=== PATIENT | female | born 2000 | race Caucasian/White ===

== ENCOUNTER 2021-04-15 22:29 | Emergency (ER) | payer MEDICAID, SELFPAY ==
[2021-04-15 22:43] VITALS: BP 119/69; PULSE 74; RESP 16; TEMP 37.2; O2SAT 99; BMI 19.0
--- NOTE | 2021-04-16 00:08 | PC.NURSE ---
LEFT EAR IRRIGATED WITH PEROXIDE/SALINE 50/50 MIX. 3 LARGE CHUNKS OF EAR WAX REMOVED. PT STATES CAN HEAR A LITTLE NOW. WAITING FOR MD TO [facility]EEVAL.
--- NOTE | 2021-04-16 00:26 | ED.EAR ---
HPI - Ear Problem General Chief complaint: Ear Problems Stated complaint: diff hearing Time Seen by Provider: 04/16/21 00:26 Source: patient Mode of arrival: ambulatory Limitations: no limitations History of Present Illness HPI Narrative: 20-year-old female who presents emergency department for evaluation of decreased hearing in her left ear. Patient states that she was using a Q-tip to clean out her ear and she had a sudden loss of hearing. She denied pain in her ear. She denied fever, rhinorrhea, sore throat, headache. MD Complaint: decreased hearing Location: left ear Duration: constant Severity: severe Relieving factors: nothing Exacerbating factors: nothing Context: other (Using Q-tip to clean out left ear) Discharge from ear: no Associated symptoms ear: decreased hearing Treatment prior to arrival: none Related Data Allergies Allergy/AdvReac Type Severity Reaction Status Date / Time No Known Allergies Allergy Verified 04/15/21 23:01 Review of Systems Review of Systems: Yes all other systems are reviewed and are negative [facility] Past Medical History [facility] Narrative: Past medical history: None. Past surgical history: Nasal surgery 2 years prior. Social history: She denies tobacco, alcohol and drug use. Social History Social History Advance Directives: No Patient : No Physical Exam Vital Signs: Vital Signs: Last Vital Signs Temp 99.0 F 04/15/21 22:43 Pulse 74 04/15/21 22:43 Resp 16 04/15/21 22:43 BP 119/69 04/15/21 22:43 Pulse Ox 99 04/15/21 22:43 Body Mass Index 19.0 Const: Other: Very pleasant and cooperative female, in no distress. She answers all questions appropriately HENMT: Head: Yes normal to inspection, Yes normocephalic and Yes atraumatic Ears: external ears normal, TM normal on the right, TM normal on the left (After removal of cerumen), external ear abnormal other (Left cerumen impaction) and hearing grossly impaired on the left General nose exam: Normal external nose present Face and sinus: Yes normal facial exam Mouth: Normal oral and palatal mucosa present Teeth and gingiva: dentition normal Throat: Yes posterior oropharynx normal Eyes: General: appearance normal, both eyes and all related structures Neck: Neck: Yes normal visual inspection, Yes no lymphadenopathy, Yes trachea midline and Yes supple Course Course Course Narrative: 20-year-old female who presents emergency department for evaluation of decreased hearing in her left ear after using Q-tip. Physical examination did reveal cerumen impaction of the left ear. The nurse was able to irrigate the patient's ear with water/hydrogen peroxide and remove the impaction. On re-evaluation, there is no cerumen in the left external auditory canal and the tympanic membrane is pink with no evidence of perforation or infection. The patient was discharged home with printed instructions on cerumen impaction Discharge Plan Discharge Clinical Impression: Cerumen impaction Qualifiers: Laterality: left Qualified Code(s): H61.22 - Impacted cerumen, left ear Patient Disposition: Home, Self-Care Additional Instructions: Do not use Q-tips You can wash your year with a a washcloth and warm water. If you have decreased hearing ears, use an pafx-tlm-ckzrumm product such as Cerumenex to dissolve the earwax. Follow-up with your doctor in 2 days. Please return to the emergency department if your symptoms get worse or if you develop any symptoms that are concerning to you.
== END 2021-04-16 00:48 | disposition home or self-care (01) ==
PROVIDERS: Emergency Provider Emergency Medicine Emergency Medical Services; PCP Pediatrics
DX: H92.02 Otalgia, left ear (principal); H61.22 Impacted cerumen, left ear
CPT/HCPCS: 69209; 99283; 99284

== ENCOUNTER 2021-05-22 00:34 | Emergency (ER) | payer MEDICAID, SELFPAY ==
--- NOTE | ~2021-05-22 | XR_ITS ---
EXAMINATION: XR CHEST CLINICAL INFORMATION: Shortness of breath COMPARISON: None TECHNIQUE: Frontal view of the chest was obtained. FINDINGS: The lungs are clear with no focal consolidation. No evidence of pneumothorax, pulmonary edema, or pleural effusions. The cardiomediastinal silhouette is unremarkable. No acute osseous findings. XR/XR chest 1V IMPRESSION: No acute cardiopulmonary findings.
[2021-05-22 00:40] VITALS: BP 111/63; PULSE 78; RESP 16; TEMP 36.7; O2SAT 99; BMI 23.3
[2021-05-22 01:12] LABS: COVID-19 Test Negative (Negative); IDNOW Serial# 9DD0AD1C
--- NOTE | 2021-05-22 01:35 | ED.URI ---
HPI - URI/Sore Throat General Chief Complaint: Upper Respiratory Symptoms Stated Complaint: Dizziness Time Seen by Provider: 05/22/21 01:24 Source: patient Mode of arrival: ambulatory Limitations: no limitations History of Present Illness HPI Narrative: Patient vaccinated against COVID complaining of dry cough for last few days pain in left side of the chest on deep breath decreased appetite no abdominal pain no nausea no vomiting Related Data Previous Rx's Medication Instructions Recorded prednisone 20 mg tablet 40 mg PO DAILY #10 tab 05/22/21 Allergies Allergy/AdvReac Type Severity Reaction Status Date / Time No Known Allergies Allergy Verified 04/15/21 23:01 Review of Systems Review of Systems: Yes all other systems are reviewed and are negative [facility] Past Medical History Medical History Asthma Social History Social History Advance Directives: No Advance Directives Information Provided: Yes Patient : No Physical Exam Vital Signs: Vital Signs: Last Vital Signs Temp 98.1 F 05/22/21 00:40 Pulse 81 05/22/21 01:39 Resp 15 05/22/21 01:39 BP 125/74 05/22/21 01:39 Pulse Ox 100 05/22/21 01:39 Body Mass Index 23.3 Appearance: Alert. Oriented X3. No acute distress. Eyes: No pallor or icterus ENT: Pharynx normal. Oral Mucosa moist Neck: Normal inspection. Neck supple. CVS: Normal heart rate and rhythm. Pulses normal. Respiratory: No respiratory distress. Equal air entry bilateral, no wheezing/rales/rhonchi Abdomen: Soft and nontender. Bowel sounds are present, no mass palpable, Skin: Skin warm and dry. Normal skin color. Normal skin turgor. Extremities: No lower extremity edema. No calf tenderness Neuro: Oriented X 3. MDM - URI/Sore Throat MDM Narrative Medical decision making narrative: Patient is saturating 100% on room air lungs are clear chest x-ray negative will give her prednisone advised to continue albuterol inhaler discharge her home Lab Data Attestation: I reviewed the patient's lab results. Labs: Lab Results 05/22/21 Range/Units 00:53 COVID-19 (JORGE LUIS) Negative (Negative) COVID-19 Clin Com See Note Discharge Plan Discharge Clinical Impression: Acute asthmatic bronchitis Patient Disposition: Home, Self-Care Instructions: Asthma (ED) Additional Instructions: Continue your inhalers 2 puffs every 4-6 hour as needed Prednisone as prescribed Follow with PCP if not better Prescriptions: New prednisone 20 mg tablet 40 mg PO DAILY Qty: 10 RF: 0
[2021-05-22 01:39] VITALS: BP 125/74; PULSE 81; RESP 15; O2SAT 100
[2021-05-22] MEDS: predniSONE 20 MG TABLET 40 MG PO (01:41)
[2021-05-22] MEDS: Albuterol Sulfate 90 MCG 8 GM INHALER 4 PUFF INHALE (01:41)
[2021-05-22 03:00] VITALS: BP 110/70; PULSE 87; RESP 18; O2SAT 97
== END 2021-05-22 03:01 | disposition home or self-care (01) ==
PROVIDERS: Emergency Provider Internal Medicine; PCP Pediatrics
DX: J45.909 Unspecified asthma, uncomplicated (principal); R42 Dizziness and giddiness; R05.9 Cough, unspecified; Z20.822 Contact with and (suspected) exposure to COVID-19; Z79.899 Other long term (current) drug therapy
CPT/HCPCS: 36415; 71045; 87635; 99284

== ENCOUNTER 2021-05-25 01:36 | Emergency (ER) | payer MEDICAID, SELFPAY ==
[2021-05-25 01:36] VITALS: BP 126/78; PULSE 73; RESP 16; TEMP 36.2; O2SAT 99; BMI 22.6
--- NOTE | 2021-05-25 02:00 | ED.ABDPAIN ---
HPI - Abdominal Pain General Chief Complaint: Abdominal Pain Stated Complaint: stomach pain Time Seen by Provider: 05/25/21 01:44 Source: patient Mode of arrival: ambulatory Limitations: no limitations History of Present Illness HPI narrative: Patient comes to emergency room complaining of suprapubic pain that started earlier this afternoon. Patient denies dysuria, no fever or chills. Patient states that she has irregular periods, last menstrual period almost 9 weeks ago, states she took a 3 home tests, all negative Related Data Previous Rx's Medication Instructions Recorded prednisone 20 mg tablet 40 mg PO DAILY #10 tab 05/22/21 nitrofurantoin 100 mg PO Q12H 7 Days #14 cap 05/25/21 monohydrate/macrocrystals 100 mg capsule (Macrobid) vitamin no.138-folic acid 1 tab PO DAILY #30 tab 05/25/21 400 mcg-dha 25 mg chewable tablet (Alive ) Allergies Allergy/AdvReac Type Severity Reaction Status Date / Time No Known Allergies Allergy Verified 05/25/21 01:41 Physical Exam Vital Signs: Vital Signs: Last Vital Signs Temp 97.1 F 05/25/21 01:36 Pulse 73 05/25/21 01:36 Resp 16 05/25/21 01:36 BP 126/78 05/25/21 01:36 Pulse Ox 99 05/25/21 01:36 Body Mass Index 22.6 Course Course Course Narrative: Patient tested positive for UTI and . HCG quant pending Patient given 1 dose of Macrobid in the emergency room. HCG positive. Patient instructed to follow-up with OBGYN for new intake MDM - Abdominal Pain Lab Data Labs: Lab Results 05/25/21 05/25/21 05/25/21 Range/Units 02:26 02:26 02:59 Beta HCG, Quant 1524 mIU/mL Urine Color YELLOW Urine Appearance HAZY Urine pH 6.0 (5.0-8.0) Ur Specific [place] 1.025 (1.005-1.025) Urine Protein NEG (NEG-TRACE) MG/DL Urine Glucose (UA) NEG (NEG) MG/DL Urine Ketones NEG (NEG) MG/DL Urine Blood 3+ H (NEG) Urine Nitrite POS H (NEG) Ur Leukocyte Esterase NEG (NEG) Urine RBC 50-75 H (0) /HPF Urine WBC 0-2 (0-4) /HPF Ur Squamous Epith Cells TRACE /LPF Urine Bacteria 2+ /LPF Urine Mucus 1+ /LPF Urine Yeast TRACE /HPF Urine Test POSITIVE H (NEGATIVE) Discharge Plan Discharge Clinical Impression: Qualifiers: Weeks of gestation: less than 8 weeks Qualified Code(s): Z3A.01 - Less than 8 weeks gestation of UTI (urinary tract infection) Qualifiers: Urinary tract infection type: site unspecified Hematuria presence: without hematuria Qualified Code(s): N39.0 - Urinary tract infection, site not specified Patient Disposition: Home, Self-Care Instructions: (ED), Urinary Tract Infection in (ED) Additional Instructions: Please follow-up with your primary care physician and OBGYN tomorrow. If you have any worsening or new symptoms, please return to the emergency room or call 911 Prescriptions: New nitrofurantoin monohyd/m-cryst [Macrobid] 100 mg capsule 100 mg PO Q12H 7 Days Qty: 14 RF: 0 Alive 400 mcg- 25 mg tablet,chewable 1 tab PO DAILY Qty: 30 RF: 3 No Action prednisone 20 mg tablet 40 mg PO DAILY Qty: 10 RF: 0 PMFSH Past Medical History Medical History Asthma Social History Social History Advance Directives: No Advance Directives Information Provided: Yes
[2021-05-25 02:45] LABS: Appearance Urine HAZY; Color Urine YELLOW; Glucose Urine UA NEG (NEG); Leukocyte Esterase Urine NEG (NEG); Nitrite Urine POS (NEG); Specific Gravity - Urine 1.025 (1.005-1.025); UACC Culture Trigger YES; Urine Blood 3+ (NEG); Urine Ketones NEG (NEG); Urine Protein NEG (NEG-TRACE)
[2021-05-25 02:46] LABS: UPreg QC Valid YES; Urine Pregnancy POSITIVE (NEGATIVE)
[2021-05-25 03:02] LABS: Bacteria Urine 2+ /LPF; Mucus Urine 1+ /LPF; RBC Urine 50-75 /HPF (0); Squamous Epithelial Cell Urine TRACE /LPF; WBC Urine 0-2 /HPF (0-4)
[2021-05-25] MEDS: Nitrofurantoin Monohyd/M-Cryst 100 MG CAPSULE PO (03:02)
[2021-05-25 03:31] LABS: HCG Quantitative 1524 mIU/mL
[2021-05-25 03:57] VITALS: BP 134/92; PULSE 74; RESP 16; TEMP 37.1; O2SAT 100
== END 2021-05-25 04:04 | disposition home or self-care (01) ==
PROVIDERS: Emergency Provider Emergency Medicine
DX: O23.41 Unspecified infection of urinary tract in pregnancy, first trimester (principal); Z3A.01 Less than 8 weeks gestation of pregnancy; Z79.899 Other long term (current) drug therapy
CPT/HCPCS: 36415; 81001; 81025; 84702; 87086; 87088; 87186; 99283; 99284

== ENCOUNTER 2021-10-31 22:38 | Emergency (ER) | payer MEDICAID, SELFPAY ==
[2021-11-01 01:15] VITALS: BP 116/67; PULSE 82; RESP 16; TEMP 36.9; O2SAT 100; BMI 22.6
[2021-11-01 04:39] VITALS: BP 114/72; PULSE 74; RESP 15; TEMP 37; O2SAT 100
[2021-11-01 05:49] LABS: Appearance Urine CLEAR; Color Urine YELLOW; Glucose Urine UA NEG (NEG); Leukocyte Esterase Urine NEG (NEG); Nitrite Urine NEG (NEG); Specific Gravity - Urine 1.025 (1.005-1.025); Urine Blood NEG (NEG); Urine Ketones NEG (NEG); Urine Protein NEG (NEG-TRACE)
[2021-11-01 05:51] LABS: UPreg QC Valid YES; Urine Pregnancy NEGATIVE (NEGATIVE)
--- NOTE | 2021-11-01 05:56 | ED.GENADULT ---
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 on the ground without loss of consciousness. Patient states that they do not wear helmets and that after the practice and into Wednesday she felt fine. However, as she attended practice again on evening and again experienced numerous tackles where she sustained falls to the ground without loss of consciousness but then reports thereafter she began having increasing neck pain and headache without visual disturbance or numbness/tingling/weakness into either upper extremity. She states she has not taken anything since Wednesday for the headache for the neck discomfort. Otherwise, she denies any recent cough, sore throat, fevers, chills, ear discomfort. In addition, she states she is up-to-date on vaccines. Related Data Home Medications Medication Instructions Recorded Confirmed albuterol sulfate 90 mcg/actuation 2 puff PO Q4-6H PRN 11/01/21 11/01/21 aerosol inhaler (ProAir HFA) aripiprazole 5 mg tablet 1 tab PO DAILY 11/01/21 11/01/21 norethindrone (contraceptive) 0.35 1 tab PO DAILY 11/01/21 11/01/21 mg tablet (Incassia) topiramate 50 mg tablet 1 tab PO BEDTIME 11/01/21 11/01/21 venlafaxine 75 mg capsule,extended 1 cap PO DAILY 11/01/21 11/01/21 release 24 hr Previous Rx's Medication Instructions Recorded cyclobenzaprine 5 mg tablet 5 mg PO BEDTIME PRN #3 tab 11/01/21 ketorolac 10 mg tablet 10 mg PO Q6H PRN 5 Days #20 tab 11/01/21 Allergies Allergy/AdvReac Type Severity Reaction Status Date / Time No Known Allergies Allergy Verified 05/25/21 01:41 Review of Systems Review of Systems: Pertinent positives and negatives as stated in HPI 10 point review of systems is otherwise negative. PMFSH Past Medical History Source: nursing notes reviewed Medical History Asthma Social History Social History Alcohol intake: never Patient Tobacco Use Status: Never used Tobacco Use of substances other than those prescribed or required for medical reasons: Yes Advance Directives: No Advance Directives Information Provided: No Patient : No Physical Exam ED Vital Signs: Vital Signs - 24 hr 11/01/21 01:15 11/01/21 04:39 11/01/21 06:14 Temperature 98.4 F 98.6 F Pulse Rate 82 74 71 Respiratory Rate 16 15 14 Blood Pressure 116/67 114/72 97/60 Pulse Oximetry 100 100 98 BMI result Body Mass Index 22.6 VITAL SIGNS: Reviewed. GENERAL: Well developed, well nourished, in no acute distress. HEAD: Normocephalic/atraumatic EYES: PERRLA, EOMI intact without pain, no nystagmus EARS: Ext canals without abnormality, TMs non-bulging and non-erythematous NOSE: Nares patent bilateral OROPHARYNX: no oral lesions noted, posterior pharynx clear and non-erythematous without noted tonsillar enlargement/erythema/exudates NECK: Supple, no adenopathy, no midline cervical spine tenderness, patient is able to extend and flex fully but discomfort noted on extension, turning head to the left and right is limited due to discomfort, no torticollis LUNGS: Normal breath sounds. No adventitious sounds or accessory muscle use. SpO2<100> CARDIOVASCULAR: Regular rate and rhythm without noted murmurs ABDOMEN: Soft, non-tender, non-distended with bowel sounds. MUSCULOSKELETAL: No tenderness, deformities, or effusions noted on gross inspection. EXTREMITIES: No cyanosis, clubbing or edema. SKIN: Inspection of the skin reveals no rashes NEUROLOGIC: Alert and oriented x 4. Strength and sensation to light touch were grossly intact x 4. Course Course Course Narrative: 20-year-old female with history and clinical presentation suggestive of possible neck strain and headache secondary to contact sports although she does not have typical symptoms of concussion she endorses that she has a history of them. Will attempt combination analgesics as well as muscle relaxant and re-evaluate. On re-evaluation patient reports significant improvement and she is otherwise discharged home in stable condition. Medical Decision Making Lab Data Labs: Lab Results 04/02/22 04/02/22 Range/Units 05:40 05:40 Urine Color YELLOW Urine Appearance CLEAR Urine pH 6.0 (5.0-8.0) Ur Specific [place] 1.025 (1.005-1.025) Urine Protein NEG (NEG-TRACE) MG/DL Urine Glucose (UA) NEG (NEG) MG/DL Urine Ketones NEG (NEG) MG/DL Urine Blood NEG (NEG) Urine Nitrite NEG (NEG) Ur Leukocyte Esterase NEG (NEG) Urine Test NEGATIVE (NEGATIVE) Discharge Plan Discharge Clinical Impression: Neck muscle strain, Muscle spasm Patient Disposition: Home, Self-Care Instructions: Muscle Strain (ED), Muscle Spasm (ED) Additional Instructions: 1. Tylenol 1000 mg, orally, every 6 hours as needed for pain control. Do not exceed 4000 mg within 24 hours. 2. Lidocaine patch, apply to area of maximal tenderness as directed on the outside packaging. 3. 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 Return to the ER for worsening symptoms. Prescriptions: New ketorolac 10 mg tablet 10 mg PO Q6H PRN (Reason: pain) 5 Days Qty: 20 0RF Rx Instructions: Patient received Toradol in the emergency room. cyclobenzaprine 5 mg tablet 5 mg PO BEDTIME PRN (Reason: muscle spasm) Qty: 3 0RF No Action venlafaxine 75 mg capsule,extended release 24hr 1 cap PO DAILY 0RF albuterol sulfate [ProAir HFA] 90 mcg/actuation HFA aerosol inhaler 2 puff PO Q4-6H PRN (Reason: Dyspnea) 0RF norethindrone (contraceptive) [Incassia] 0.35 mg tablet 1 tab PO DAILY 0RF aripiprazole 5 mg tablet 1 tab PO DAILY 0RF topiramate 50 mg tablet 1 tab PO BEDTIME 0RF
[2021-11-01 06:14] VITALS: BP 97/60; PULSE 71; RESP 14; O2SAT 98
[2021-11-01] MEDS: Lidocaine 4 % Patch ADH..PATCH 1 PATCH TRANSDERMA (06:36)
[2021-11-01] MEDS: Acetaminophen 325 MG TABLET 975 MG PO (06:37)
[2021-11-01] MEDS: Ketorolac Tromethamine 15 MG/ML VIAL IM (06:37)
[2021-11-01] MEDS: Cyclobenzaprine HCl 5 MG TABLET PO (06:37)
== END 2021-11-01 07:19 | disposition home or self-care (01) ==
PROVIDERS: Emergency Provider Student in an Organized Health Care Education/Training Program
DX: S16.1XXA Strain of muscle, fascia and tendon at neck level, initial encounter (principal); W50.0XXA Accidental hit or strike by another person, initial encounter; R51.9 Headache, unspecified; M62.838 Other muscle spasm; Y93.63 Activity, rugby; Y92.328 Other athletic field as the place of occurrence of the external cause; Y99.8 Other external cause status
CPT/HCPCS: 81003; 81025; 96372; 99284; J1885

== ENCOUNTER 2022-01-28 19:10 | Emergency (ER) | payer MEDICAID, SELFPAY | END 2022-01-28 19:56 | disposition left against medical advice (07) | PROVIDERS: Emergency Provider Emergency Medicine | DX: R42 Dizziness and giddiness (principal) ==